=== PATIENT | female | born 1995 | race Caucasian/White ===

== ENCOUNTER 2020-12-13 14:57 | Emergency (ER) | payer MEDICAID ==
[~2020-12-13] VITALS: Ht 157.5 cm; Wt 64.0 kg
[2020-12-13] MEDS ORDERED: DEXAMETHASONE 4MG TABLET PO ONE (18:45)
[2020-12-13 18:58] VITALS: BP 111/72
== END 2020-12-13 20:30 | disposition home or self-care (01) ==
LOC: ER 14:57
DX: R21 Rash and other nonspecific skin eruption (principal); Z59.0 Homelessness
CPT/HCPCS: 99283; J8540